=== PATIENT | male | born 1975 | race Two or more races ===

== ENCOUNTER 2024-06-18 23:35 | Inpatient (IN) | payer OTHER ==
[~2024-06-18] VITALS: Ht 167.6 cm; Wt 69.1 kg
[2024-06-19 02:36] LABS: BASOPHILS % (AUTO) 0.3 % (0.0-2.0); EOSINOPHILS % (AUTO) 0.8 % (1.0-6.0); HEMATOCRIT 47.4 % (41-53); HEMOGLOBIN 16.2 g/dL (13.5-17.5); LYMPHOCYTES # (AUTO) 1.3 K/uL (1.0-4.8); MEAN CORPUSCULAR HGB CONC 34.2 G/dL (31.0-37.0); MEAN CORPUSCULAR VOLUME 91 fL (80-100); MONOCYTES % (AUTO) 15.9 % (2.0-9.0); NEUTROPHILS # (AUTO) 3.9 K/uL (1.8-7.7); PLATELET COUNT (AUTO) 170 K/uL (150-450); RED BLOOD CELL COUNT(AUTO) 5.22 MIL/uL (4.50-5.90); RED CELL DISTRIBUTION WIDTH 13.2 % (11.5-14.5); WHITE BLOOD COUNT (AUTO) 6.4 K/uL (4.5-11.0)
[2024-06-19 02:40] LABS: ANION GAP 5 mmol/L (8-16); CARBON DIOXIDE 28 mmol/L (22-29); CHLORIDE 101 mmol/L (98-107); CREATININE 0.91 mg/dL (0.60-1.30); GLUCOSE,RANDOM 79 mg/dL (70-110); POTASSIUM 3.8 mmol/L (3.5-5.1); SODIUM SERUM 134 mmol/L (136-145); UREA NITROGEN, BLOOD 15 mg/dL (7-18)
[2024-06-19 02:41] LABS: CALCIUM, TOTAL 8.6 mg/dL (8.8-10.5); GLOMERULAR FILTR. RATE CALC > 60 mL/min (>60)
[2024-06-19 02:46] LABS: ALANINE AMINOTRANSFERASE 79 U/L (12-78); ALBUMIN 2.9 g/dL (3.4-5.0); ALKALINE PHOSPHATASE 61 U/L (46-116); ASPARTATE AMINOTRANSFERASE 56 U/L (15-37); BILIRUBIN,TOTAL 0.4 mg/dL (0.1-1.0); LIPASE 60 U/L (16-77); TOTAL PROTEIN, SERUM 8.5 g/dL (6.4-8.2)
[2024-06-19] MEDS: ACETAMINOPHEN 325 MG TABLET PO ONE (06:22)
[2024-06-19] MEDS: ONDANSETRON 4 MG TABLET PO ONE (06:23)
[2024-06-19] MEDS: PERTUSS(ACELL),DIPH,TET/PF 0.5 ML SYRINGE [ADULT] IM. ONE (06:24)
[2024-06-19 07:16] LABS: APPEARANCE,URINE CLEAR (CLEAR); BILIRUBIN,URINE NEGATIVE (NEGATIVE); COLOR,URINE LIGHT YELLOW (YELLOW); GLUCOSE, URINE (UA) NEGATIVE (NEGATIVE); KETONES,URINE NEGATIVE (NEGATIVE); LEUKOCYTE ESTERASE ,URINE NEGATIVE (NEGATIVE); NITRATE,URINE NEGATIVE (NEGATIVE); OCCULT BLOOD,URINE NEGATIVE (NEGATIVE); PH,URINE 6.5 (5.0-8.0); PH,URINE DRUG SCREEN 6.5 (5.0-8.0); PROTEIN,URINE NEGATIVE (NEGATIVE); SPECIFIC GRAVITIY, URINE 1.019 (1.003-1.030); UROBILINOGEN,URINE <=1.0 mg/dL (<=1.0)
[2024-06-19 07:24] LABS: ALCOHOL, URINE DRUG SCREEN NEGATIVE (NEGATIVE); AMPHET/METH SCREEN,URINE POSITIVE (NEGATIVE); BARBITURATE SCREEN, URINE NEGATIVE (NEGATIVE); BENZODIAZEPINES SCREEN,URINE NEGATIVE (NEGATIVE); CANNABINOID SCREEN,URINE NEGATIVE (NEGATIVE); COCAINE SCREEN,URINE NEGATIVE (NEGATIVE); METHADONE SCREEN, URINE NEGATIVE (NEGATIVE); OPIATE SCREEN,URINE NEGATIVE (NEGATIVE); PHENCYCLIDINE SCREEN,URINE NEGATIVE (NEGATIVE)
[2024-06-19] MEDS ORDERED: LORazepam 1 MG TABLET PO PRN (09:30)
[2024-06-19] MEDS ORDERED: PROMETHAZINE HCL 25 MG TABLET PO PRN (09:30)
[2024-06-19] MEDS ORDERED: MAG HYDROX/ALUMINUM HYD/SIMETH ES 30 ML SUSPENSION UDCUP PO PRN (09:30)
[2024-06-19] MEDS ORDERED: LOPERAMIDE HCL 2 MG/15 ML SUSPENSION UDCUP PO PRN (09:30)
[2024-06-19] MEDS ORDERED: BACLOFEN 10 MG TABLET PO PRN (09:30)
[2024-06-19] MEDS ORDERED: HydrOXYzine PAMOATE 50 MG CAPSULE PO PRN (09:30)
[2024-06-19] MEDS ORDERED: CloNIDine HCL 0.1 MG TABLET PO PRN (09:30)
[2024-06-19] MEDS ORDERED: DICYCLOMINE HCL 10 MG CAPSULE PO PRN (09:30)
[2024-06-19] MEDS: SODIUM CHLORIDE 0.45% 1,000 ML IV SCH (10:02)
[2024-06-19 19:23] VITALS: BP 107/60; PULSE 80; RESP 18; TEMP 99; O2SAT 98
[2024-06-19] MEDS: LevETIRAcetam 250 MG TABLET PO SCH (20:18)
[2024-06-20 04:32] VITALS: BP 120/68; PULSE 76; RESP 18; TEMP 98.4; O2SAT 99
[2024-06-20] MEDS: ACETAMINOPHEN 325 MG TABLET PO PRN (08:41)
[2024-06-20 08:57] VITALS: BP 113/75; PULSE 74; RESP 19; TEMP 98.2; O2SAT 98
[2024-06-20 14:58] VITALS: BP 104/76; PULSE 86; RESP 20; TEMP 98.1; O2SAT 100
[2024-06-20 21:02] VITALS: BP 94/60; PULSE 96; RESP 18; TEMP 99.3; O2SAT 98
[2024-06-21 04:34] VITALS: BP 112/73; PULSE 91; RESP 18; TEMP 98.4; O2SAT 97
[2024-06-21] MEDS: IBUPROFEN 600 MG TABLET PO PRN (04:38)
[2024-06-21 08:03] VITALS: BP 109/85; PULSE 85; RESP 20; TEMP 98.6; O2SAT 100
[2024-06-21 19:51] VITALS: BP 119/70; PULSE 76; RESP 20; TEMP 99.3; O2SAT 95
[2024-06-21] MEDS: TraZODone HCL 50 MG TABLET PO PRN (20:42)
[2024-06-22 05:36] VITALS: BP 100/73; PULSE 81; RESP 18; TEMP 98.4; O2SAT 96
[2024-06-22 07:30] VITALS: BP 112/74; PULSE 94; RESP 20; TEMP 98.7; O2SAT 98
[2024-06-22] MEDS: LACTULOSE 20 GM/30 ML SOLUTION UDCUP PO PRN (11:14)
[2024-06-22] MEDS: BICTEGRAV/EMTRICIT/TENOFOV ALA 50-200-25 MG TABLET PO SCH (11:15)
[2024-06-22] MEDS: VALPROIC ACID 250 MG CAPSULE PO SCH ×2 (11:18→20:45)
[2024-06-22] MEDS: VALPROIC ACID 250 MG CAPSULE PO ONE (11:36)
[2024-06-22 15:42] VITALS: BP 101/60; PULSE 101; RESP 20; TEMP 98.2; O2SAT 98
[2024-06-22 20:30] VITALS: BP 106/59; PULSE 96; RESP 18; TEMP 99.4; O2SAT 93
[2024-06-22] MEDS ORDERED: VALPROIC ACID 250 MG CAPSULE PO SCH (21:00)
[2024-06-23 05:26] VITALS: BP 118/78; PULSE 84; RESP 18; TEMP 98.4; O2SAT 98
[2024-06-23 05:31] VITALS: BP 118/78; PULSE 84; RESP 18; TEMP 98.4; O2SAT 98
[2024-06-23 07:37] VITALS: BP 106/79; PULSE 85; RESP 18; TEMP 98.2; O2SAT 98
[2024-06-23] MEDS ORDERED: DOCUSATE SODIUM 100 MG CAPSULE PO PRN (14:45)
[2024-06-23] MEDS: POLYETHYLENE GLYCOL 3350 17 GM PACKET PO SCH (16:38)
[2024-06-23] MEDS: BISACODYL 5 MG EC TABLET PO ONE (16:38)
[2024-06-23] MEDS: SODIUM PHOSPHATE,MONO-DIBASIC 133 ML ENEMA PR ONE (16:38)
[2024-06-23 19:46] VITALS: BP 123/71; PULSE 93; RESP 18; TEMP 98.6; O2SAT 94
[2024-06-23] MEDS: MAGNESIUM CITRATE [LEMON] 300 ML ORAL SOLUTION PO ONE (23:59)
[2024-06-24 08:00] VITALS: BP 109/65; PULSE 89; RESP 16; TEMP 98.5; O2SAT 99
[2024-06-24] MEDS: CefTRIAXone SODIUM 1 GM/VIAL IM ONE (16:52)
[2024-06-24] MEDS: LIDOCAINE/PF 1% 2 ML VIAL IM ONE (16:52)
[2024-06-24] MEDS: DOXYCYCLINE HYCLATE 100 MG TABLET PO SCH (16:52)
[2024-06-24] MEDS ORDERED: BICT1TAB PO (17:06)
[2024-06-24] MEDS ORDERED: DOXY-354 PO (17:07)
[2024-06-24] MEDS ORDERED: LEVE250T81 PO (17:07)
[2024-06-24] MEDS ORDERED: VALP250C48 PO (17:08)
[2024-06-24] MEDS ORDERED: POLY17PO47 PO (17:08)
[2024-06-24] MEDS ORDERED: DOCU-385 PO (17:09)
== END 2024-06-24 19:28 | DRG 897 ==
LOC: EMS 23:37 → EDH 06-19 10:38 → 6S 06-19 11:24
PROVIDERS: ADMIT Hospitalist; ATTEND Hospitalist
DX: F11.23 Opioid dependence with withdrawal (principal); B19.10 Unspecified viral hepatitis B without hepatic coma; E87.1 Hypo-osmolality and hyponatremia; F15.23 Other stimulant dependence with withdrawal; G40.909 Epilepsy, unspecified, not intractable, without status epilepticus; S61.419A Laceration without foreign body of unspecified hand, initial encounter; K59.00 Constipation, unspecified; S61.411A Laceration without foreign body of right hand, initial encounter; X58.XXXA Exposure to other specified factors, initial encounter; Z91.199 Patient's noncompliance with other medical treatment and regimen due to unspecified reason; Y93.89 Activity, other specified; Y92.89 Other specified places as the place of occurrence of the external cause; Y99.8 Other external cause status
CPT/HCPCS: 74018; 80048; 80076; 80307; 81003; 83690; 85025; 90715; 99285; J0696; J3490; Q0162; 36415-L1; 36415-TC